=== PATIENT | male | born 1985 | race American Indian/Alaskan Native ===

== ENCOUNTER 2022-01-27 | Emergency (ER) | payer SELFPAY ==
[2022-01-27] MEDS ORDERED: hydrOXYzine HCL 25 MG TAB PO ONE (00:52)
--- NOTE | 2022-01-27 00:58 | Emergency Department Report ---
ED General Adult HPI - General Chief complaint: Anxiety Stated complaint: ANXIETY PUI?: No Time Seen by Provider: 01/27/22 00:22 Source: patient Mode of arrival: Stretcher Limitations: No Limitations - History of Present Illness Initial comments: This is a pleasant 36-year-old male who stated he has a history of PTSD due to [place] war where he was blown before, depression, and also anxiety is also dealing with alcohol issue stated he came in today because he feels very depressed and also very anxious because his mother in 2019 and that the mother states coming up as well. According patient he last drank alcohol 2 hours prior to arrival around 10:00 PM. Patient said he also feels very stressed. According patient he has suicidal ideation and thoughts but denies any current attempts or any plans. Patient also denies any homicidal ideation. Patient denies any auditory visual or tactile hallucination. At the time of evaluation patient denies any fever chills night sweat dizziness blurred vision lightheadedness headache tinnitus ear pain runny nose sore throat loss of taste loss of smell chest pain palpitation short of breath cough abdominal pain nausea vomiting diarrhea constipation joint pain muscle pain new rash and heat or cold intolerance. Severity scale (0 -10): 0 - Related Data Allergies Allergy/AdvReac Type Severity Reaction Status Date / Time No Known Allergies Allergy Unverified 01/27/22 00:13 ED Review of Systems ROS: Stated complaint: ANXIETY Other details as noted in HPI Comment: All other systems reviewed and negative Constitutional: no symptoms reported, see HPI Eyes: as per HPI ENT: as per HPI Respiratory: no symptoms reported, see HPI Cardiovascular: as per HPI Endocrine: no symptoms reported, see HPI Gastrointestinal: as per HPI Genitourinary: as per HPI Musculoskeletal: as per HPI Skin: as per HPI Neurological: as per HPI Psychiatric: as per HPI Hematological/Lymphatic: as per HPI ED Past Medical Hx - Past Medical History Previous Medical History?: Yes Hx Psychiatric Treatment: Yes (Anxiety and depression) - Surgical History Past Surgical History?: No ED Physical Exam - General Limitations: No Limitations General appearance: alert, in no apparent distress - Head Head exam: Present: atraumatic, normocephalic, normal inspection - Eye Eye exam: Present: normal appearance, PERRL, EOMI Pupils: Present: normal accommodation - ENT ENT exam: Present: normal exam, normal orophraynx, mucous membranes moist - Neck Neck exam: Present: normal inspection, full ROM - Respiratory Respiratory exam: Present: normal lung sounds bilaterally - Cardiovascular Cardiovascular Exam: Present: regular rate, normal rhythm, normal heart sounds. Absent: systolic murmur, diastolic murmur - GI/Abdominal GI/Abdominal exam: Present: soft - Extremities Exam Extremities exam: Present: normal inspection, full ROM, normal capillary refill - Back Exam Back exam: Present: normal inspection, full ROM - Neurological Exam Neurological exam: Present: oriented X3, CN II-XII intact - Psychiatric Psychiatric exam: Present: depressed, anxious, suicidal ideation. Absent: homicidal ideation - Skin Skin exam: Present: normal color ED Course Vital Signs 01/27/22 01/27/22 01/27/22 00:12 03:55 03:56 Temperature 98.8 F 98.2 F Pulse Rate 99 H 84 Respiratory 18 16 Rate Blood Pressure 144/96 109/60 [Right] O2 Sat by Pulse 99 98 98 Oximetry - Reevaluation(s) Reevaluation #1: 01/27/22 04:44 PATIENT SLEEPING COMFORTABLY; GIVEN ALCOHOL LEVEL IS ELEVATED, WILL NEED PATIENT TO BE SOBER FIRST BEFORE EVALUATION BY MENTAL HEALTH WHICH IS LIKELY GOING TO BE AFTER 6AM WHEN I LEAVE. THEREFORE, AT 6AM, I WILL SIGN OUT MY PATIENT CARE TO MY COLLEAGUE DR. OBRREGO. 01/27/22 05:56 WILL SIGN OUT TO MY COLLEAGUE DR. BORREGO; WILL NEED TO REPEAT ALCOHOL LEVEL AND MENTAL HEALTH EVALUATION. ED Medical Decision Making - Lab Data Result diagrams: 01/27/22 01:00 01/27/22 01:00 Critical care attestation.: If time is entered above; I have spent that time in minutes in the direct care of this critically ill patient, excluding procedure time. ED Disposition Clinical Impression: Alcohol intoxication, Suicidal ideation Condition: Stable
[2022-01-27 01:12] LABS: Bilirubin,Urine NEG (Negative); Blood,Urine SM (Negative); Color,Urine Yellow (Yellow); Mucus,Urine FEW /HPF; Urobilinogen,Urine < 2.0 mg/dL (<2.0); WBC,Urine < 1.0 /HPF (0.0-6.0)
[2022-01-27 01:15] LABS: RBC,Urine < 1.0 /HPF (0.0-6.0)
[2022-01-27 01:22] LABS: Amphetamine Screen,Urine Negative; Benzodiazepines Screen,Urine Negative; Cannabinoid Screen,Urine Negative; Cocaine Screen,Urine Negative; Methadone Screen,Urine Negative; Opiate Screen,Urine Negative
[2022-01-27 01:30] LABS: Basophils % (Auto) 0.7 % (0.0-1.8); Eosinophils % (Auto) 0.8 % (0.0-4.3); Hematocrit 37.9 % (35.5-45.6); Mean Corpuscular HGB Conc 34 % (32-34); Mean Corpuscular Volume 101 fl (84-94); Monocytes # (Auto) 0.2 K/mm3 (0.0-0.8); Monocytes % (Auto) 9.9 % (0.0-7.3); Platelet Count 131 K/mm3 (140-440); Red Blood Count 3.74 M/mm3 (3.65-5.03); Red Cell Distribution Width 14.3 % (13.2-15.2)
[2022-01-27 01:52] LABS: Alanine Aminotransferase 186 units/L (7-56); Albumin 4.8 g/dL (3.9-5); Blood Urea Nitrogen 10 mg/dL (9-20); Hemolysis Index 8
[2022-01-27 02:00] LABS: BUN/Creatinine Ratio 17
--- NOTE | 2022-01-27 10:10 | Consultation ---
History of Present Illness - Reason for Consult Consult date: 01/27/22 Reason for consult: depression, detox - History of Present Psychiatric Illness HPI: This is a pleasant 36-year-old male who stated he has a history of PTSD due to [place] war where he was blown before, depression, and also anxiety is also dealing with alcohol issue stated he came in today because he feels very depressed and also very anxious because his mother in 2019 and that the mother states coming up as well. According patient he last drank alcohol 2 hours prior to arrival around 10:00 PM. Patient said he also feels very stressed. According patient he has suicidal ideation and thoughts but denies any current attempts or any plans. Patient also denies any homicidal ideation. Patient denies any auditory visual or tactile hallucination. The patient was seen today. He is calm, and cooperative. He reports being hard of hearing. The patient says he came to the hospital for "depression, anxiety, N/V, SOB, and diarrhea." He also says he drinks about "2 to 3 beers a day." He says he sees the [facility] for depression, PTSD and drinking. The patient says he's "on a med to help me stop drinking and for depression." [facility]. He says he has PTSD and depression from losing his mom two years ago, and being in [place] in 2008. He says he has trouble sleeping. The patient denies SI/HI at present, but states he's had thoughts on and off at times but never thought about acting on them. He denies hallucinations of any kind at present. He then says "well if I don't drink for awhile I will." He denies any illicit drug use, or nicotine. Since this patient currently sees a psychiatrist and has an appointment tomorrow, will prescribe the patient med for anxiety and sleep, and have him follow up with psychiatrist at the [facility]. PAST PSYCHIATRIC HISTORY Diagnoses: Depression, PTSD Suicide attempts or Self-harm behavior: Denies Prior psychiatric hospitalizations: Denies Substance Abuse history: Alcohol Previous psychiatric medications tried: Could not recall Outpatient treatment: Denies PAST MEDICAL HISTORY: None reported Family Psychiatric History: None reported or documented SOCIAL HISTORY Marital Status: Single Living Arrangements: Lives with roommate Employment Status: [place] Access to guns/weapons: Denies Education: History of Abuse: Denies Legal History: Denies REVIEW OF SYSTEMS Constitutional: Negative for weight loss ENT: Negative for stridor Respiratory: Negative for cough or hemoptysis All other systems reviewed and are negative MENTAL STATUS EXAMINATION General Appearance and Behavior: Age appropriate, good hygiene, wearing appropriate clothes, good eye contact, calm, cooperative Cooperation: Participating/engaged Psychomotor Behavior: Psychomotor normal Mood: anxious, depression Affect and affective range: congruent with stated mood Thought Process: Goal directed Thought Content: None Speech: Normal tone and pace Suicidal Ideation: Denies Homicidal Ideation: Denies Hallucinations: Denies Delusions: None elicited Impulse Control: Limited Insight and Judgment: Limited insight and judgment Memory: Limited Attention: attentive Orientation: Alert, oriented Diagnoses: Major Depressive Disorder Alcohol Dependence Treatment Plan D/c 1013 Continue previously prescribed meds from [facility] Vistaril 50mg po BID Trazodone 50mg po qhs PSYCHOTHERAPY: Supportive psychotherapy provided MEDICAL: Per primary team DELIRIUM PRECAUTIONS: Please re-orient patient frequently, keep lights on during the day, and minimize benzodiazepines and opiates as these medications could worsen patient's confusion. BABY ATTENDANT: Per medical team DISPOSITION: Do not recommend inpatient treatment. The patient understands that if SI/HI are to arise he is to seek immediate assistance. The [facility] The food service employee to further discuss safety plan. The patient to abstain from alcohol Will sing off. Thanks. Case staffed with Dr. Awan Medications and Allergies Allergies Allergy/AdvReac Type Severity Reaction Status Date / Time No Known Allergies Allergy Unverified 01/27/22 00:13 Home Medications Medication Instructions Recorded Confirmed Last Taken Type Trazodone HCl 50 mg PO QHS #30 01/27/22 Unknown Rx hydrOXYzine PAMOATE [Vistaril] 50 mg PO BID PRN #60 capsule 01/27/22 Unknown Rx Mental Status Exam - Vital signs Last Vital Signs Temp 98.2 F 01/27/22 03:56 Pulse 87 01/27/22 10:06 Resp 15 01/27/22 10:06 BP 115/77 01/27/22 10:06 Pulse Ox 100 01/27/22 10:06 Results Result Diagrams: 01/27/22 01:00 01/27/22 01:00 Abnormal lab results 01/27/22 01/27/22 01/27/22 Range/Units 01:00 01:00 01:00 WBC 2.4 L (4.5-11.0) K/mm3 MCV 101 H (84-94) fl MCH 35 H (28-32) pg Plt Count 131 L (140-440) K/mm3 Lymph % (Auto) 40.0 H (13.4-35.0) % [place] % (Auto) 9.9 H (0.0-7.3) % Lymph # (Auto) 1.0 L (1.2-5.4) K/mm3 Seg Neutrophils # 1.2 L (1.8-7.7) K/mm3 Chloride 96.3 L (98-107) mmol/L Creatinine 0.6 L (0.8-1.3) mg/dL Glucose 132 H (75-100) mg/dL AST 853 H (5-40) units/L ALT 186 H (7-56) units/L Plasma/Serum Alcohol 0.42 H (0-0.07) % All other labs normal.
--- NOTE | 2022-01-27 15:11 | Event Note ---
Date: 01/27/22 Patient is seen and examined. He is awake, alert, oriented, and clinically sober. Transaminitis likely secondary to alcoholic liver disease. He does not require a repeat blood alcohol level at this time. The psychiatric team have advised that he does not meet criteria for 1013 hold or involuntary confinement. Patient is observed in this department for almost 15 hours without clinical decompensation. He is suitable to be discharged with outpatient follow-up and resources at this time. Return precautions are reviewed. All questions an swered. Nursing team reports no issues at this time Vital Signs (72 hours) 01/27/22 01/27/22 01/27/22 00:12 03:55 03:56 Temperature 98.8 F 98.2 F Pulse Rate 99 H 84 Respiratory 18 16 Rate Blood Pressure 144/96 109/60 [Right] O2 Sat by Pulse 99 98 98 Oximetry 01/27/22 10:06 Temperature Pulse Rate 87 Respiratory 15 Rate Blood Pressure 115/77 [Right] O2 Sat by Pulse 100 Oximetry Lab Results 01/27/22 01/27/22 01/27/22 Range/Units 01:00 01:00 01:00 WBC 2.4 L (4.5-11.0) K/mm3 RBC 3.74 (3.65-5.03) M/mm3 Hgb 13.0 (11.8-15.2) gm/dl Hct 37.9 (35.5-45.6) % MCV 101 H (84-94) fl MCH 35 H (28-32) pg MCHC 34 (32-34) % RDW 14.3 (13.2-15.2) % Plt Count 131 L (140-440) K/mm3 Lymph % (Auto) 40.0 H (13.4-35.0) % [place] % (Auto) 9.9 H (0.0-7.3) % Eos % (Auto) 0.8 (0.0-4.3) % Baso % (Auto) 0.7 (0.0-1.8) % Lymph # (Auto) 1.0 L (1.2-5.4) K/mm3 [place] # (Auto) 0.2 (0.0-0.8) K/mm3 Eos # (Auto) 0.0 (0.0-0.4) K/mm3 Baso # (Auto) 0.0 (0.0-0.1) K/mm3 Seg Neutrophils % 48.6 (40.0-70.0) % Seg Neutrophils # 1.2 L (1.8-7.7) K/mm3 Sodium 138 (137-145) mmol/L Potassium 3.6 (3.6-5.0) mmol/L Chloride 96.3 L (98-107) mmol/L Carbon Dioxide 24 (22-30) mmol/L Anion Gap 21 mmol/L BUN 10 (9-20) mg/dL Creatinine 0.6 L (0.8-1.3) mg/dL Estimated GFR > 60 ml/min BUN/Creatinine Ratio 17 % Glucose 132 H (75-100) mg/dL Calcium 9.0 (8.4-10.2) mg/dL Magnesium 2.10 (1.7-2.3) mg/dL Total Bilirubin 0.50 (0.1-1.2) mg/dL AST 853 H (5-40) units/L ALT 186 H (7-56) units/L Alkaline Phosphatase 127 (35-129) units/L Total Protein 7.1 (6.3-8.2) g/dL Albumin 4.8 (3.9-5) g/dL Albumin/Globulin Ratio 2.1 % TSH (0.270-4.200) mlU/mL Urine Color (Yellow) Urine Turbidity (Clear) Urine pH (5.0-7.0) Ur Specific [place] (1.003-1.030) Urine Protein (Negative) mg/dL Urine Glucose (UA) (Negative) mg/dL Urine Ketones (Negative) mg/dL Urine Blood (Negative) Urine Nitrite (Negative) Urine Bilirubin (Negative) Urine Urobilinogen (<2.0) mg/dL Ur Leukocyte Esterase (Negative) Urine WBC (Auto) (0.0-6.0) /HPF Urine RBC (Auto) (0.0-6.0) /HPF U Epithel Cells (Auto) (0-13.0) /HPF Urine Mucus /HPF Urine Opiates Screen Urine Methadone Screen Ur Barbiturates Screen Ur Phencyclidine Scrn Ur Amphetamines Screen U Benzodiazepines Scrn Urine Cocaine Screen U Marijuana (THC) Screen Drugs of Abuse Note Plasma/Serum Alcohol 0.42 H (0-0.07) % 01/27/22 01/27/22 01/27/22 Range/Units 01:00 01:03 01:03 WBC (4.5-11.0) K/mm3 RBC (3.65-5.03) M/mm3 Hgb (11.8-15.2) gm/dl Hct (35.5-45.6) % MCV (84-94) fl MCH (28-32) pg MCHC (32-34) % RDW (13.2-15.2) % Plt Count (140-440) K/mm3 Lymph % (Auto) (13.4-35.0) % [place] % (Auto) (0.0-7.3) % Eos % (Auto) (0.0-4.3) % Baso % (Auto) (0.0-1.8) % Lymph # (Auto) (1.2-5.4) K/mm3 [place] # (Auto) (0.0-0.8) K/mm3 Eos # (Auto) (0.0-0.4) K/mm3 Baso # (Auto) (0.0-0.1) K/mm3 Seg Neutrophils % (40.0-70.0) % Seg Neutrophils # (1.8-7.7) K/mm3 Sodium (137-145) mmol/L Potassium (3.6-5.0) mmol/L Chloride (98-107) mmol/L Carbon Dioxide (22-30) mmol/L Anion Gap mmol/L BUN (9-20) mg/dL Creatinine (0.8-1.3) mg/dL Estimated GFR ml/min BUN/Creatinine Ratio % Glucose (75-100) mg/dL Calcium (8.4-10.2) mg/dL Magnesium (1.7-2.3) mg/dL Total Bilirubin (0.1-1.2) mg/dL AST (5-40) units/L ALT (7-56) units/L Alkaline Phosphatase (35-129) units/L Total Protein (6.3-8.2) g/dL Albumin (3.9-5) g/dL Albumin/Globulin Ratio % TSH 0.955 (0.270-4.200) mlU/mL Urine Color Yellow (Yellow) Urine Turbidity Clear (Clear) Urine pH 6.0 (5.0-7.0) Ur Specific [place] 1.009 (1.003-1.030) Urine Protein 30 mg/dl (Negative) mg/dL Urine Glucose (UA) Neg (Negative) mg/dL Urine Ketones Neg (Negative) mg/dL Urine Blood Sm (Negative) Urine Nitrite Neg (Negative) Urine Bilirubin Neg (Negative) Urine Urobilinogen < 2.0 (<2.0) mg/dL Ur Leukocyte Esterase Neg (Negative) Urine WBC (Auto) < 1.0 (0.0-6.0) /HPF Urine RBC (Auto) < 1.0 (0.0-6.0) /HPF U Epithel Cells (Auto) < 1.0 (0-13.0) /HPF Urine Mucus Few /HPF Urine Opiates Screen Negative Urine Methadone Screen Negative Ur Barbiturates Screen Negative Ur Phencyclidine Scrn Negative Ur Amphetamines Screen Negative U Benzodiazepines Scrn Negative Urine Cocaine Screen Negative U Marijuana (THC) Screen Negative Drugs of Abuse Note Disclamer Plasma/Serum Alcohol (0-0.07) %
[2022-01-27 15:16] VITALS: BP 116/85
== END 2022-01-27 15:36 | disposition home or self-care (01) ==
LOC: ED
DX: U07.1 COVID-19 (principal); R45.851 Suicidal ideations; F10.129 Alcohol abuse with intoxication, unspecified; F41.9 Anxiety disorder, unspecified; F32.9 Major depressive disorder, single episode, unspecified; Z79.899 Other long term (current) drug therapy; Y90.9 Presence of alcohol in blood, level not specified
CPT/HCPCS: 36415; 80053; 80307; 81001; 83735; 84443; 85025; 99284; Q0177; U0003; 80320; G0480